=== PATIENT | male | born 1930 | race Caucasian/White ===

== ENCOUNTER 2016-10-30 12:59 | Emergency (ER) | payer OTHER ==
[~2016-10-30] VITALS: Ht 167.6 cm; Wt 68.0 kg
[~2016-10-30 12:59] MED LIST: ASPI81TA28 PO; CHOL1CAP57 PO; FENO134C PO; MAGN400T24 PO; METO50TA16 PO; MULT60CA PO; OMEGCAP2 PO; PLV75 PO; SIMV-151 PO
[2016-10-30 13:01] VITALS: TEMP 36.5; Ht 167.6 cm; Wt 68.0 kg
[2016-10-30] MEDS ORDERED: DIAZEPAM 5MG TAB PO STA (13:19)
[2016-10-30 13:24] VITALS: O2SAT 95
--- NOTE | 2016-10-30 13:40 | EMERGENCY ROOM VISIT NOTE ---
History Report prepared by Marivel: Juarez Reddy Under the Supervision of: Dr. Thomas Holder M.D. First contact with patient: 13:15 Chief Complaint: DIZZY Stated Complaint: DIZZINESS AND WEAKNESS History of Present Illness The patient is an 86 year old male who presents to the Emergency Room with complaints of persistent dizziness that started at 0800 this morning. The patient notes a room-spinning sensation that improves when he sits up. The patient denies history of vertigo. He has not had ringing in his ears recently. He denies any recent fevers or chills. The patient also notes that for the past several months he has been seeing his 's face at night when his eyes are closed and he is trying to sleep. His earlier this year. The patient has a pacemaker. The patient is on a blood thinner. Source of History: patient Onset: 0800 this morning Position: other (global) Quality: other (dizziness) Timing: other (persistent) Modifying Factors (Relieving): other (sitting up) Associated Symptoms: No chills, No fevers Review of Systems All systems have been listed, reviewed, and are negative other than those previously mentioned. Please see Additional Medical History Sheet. Past Medical & Surgical Medical Problems: (1) High cholesterol (2) Hyperlipidemia Nec/Nos (3) Hypertension (4) Lumbosacral Spondylosis (5) Pernicious Anemia (6) Pure Hypercholesterolem Surgical Problems: (1) History of cholecystectomy Family History Cancer Hypertension Kidney disease Kidney stones Social History Smoking Status: Never Smoker Alcohol Use: none Marital Status: Housing Status: lives with family Occupation Status: retired Current/Historical Medications Scheduled Aspirin (Aspirin), 81 MG PO DAILY Cholecalciferol (Vitamin D), 400 UNITS PO DAILY Clopidogrel (Plavix), 75 MG PO DAILY Fenofibrate (Tricor ), 134 MG PO DAILY Magnesium Oxide (Mag-Ox), 400 MG PO DAILY Metoprolol Tartrate (Metoprolol Tartrate), 50 MG PO BID Ocuvite Preservision (Ocuvite Preservision), 1 TAB PO DAILY [place]-3 Fatty Acids (Fish Oil), 1 CAP PO DAILY Simvastatin (Zocor), 20 MG PO DAILY Scheduled PRN Diazepam (Valium), 5 MG PO Q6 PRN for vertigo Meclizine Hcl (Meclizine Hcl), 1 TAB PO Q6 PRN for vertigo Allergies Coded Allergies: No Known Allergies (Unverified , 03/01/14) Physical Exam Vital Signs Date Time Temp Pulse Resp B/P Pulse Ox O2 Delivery O2 Flow Rate FiO2 10/30/16 16:21 60 18 152/94 95 10/30/16 14:33 60 18 165/104 97 Room Air 10/30/16 13:43 60 16 188/111 96 Room Air 60 160/105 10/30/16 13:28 60 10/30/16 13:24 95 Room Air 10/30/16 13:01 36.5 64 20 187/106 99 Room Air Physical Exam GENERAL: Patient awake, alert, oriented x 3. Patient follows commands. Patient does not appear toxic. Patient is adequately hydrated and well- nourished. SKIN: No erythema, pallor, cyanosis or rash HEENT: Normal head, pupils equal, reactive to light and accommodation. Eyes have marked horizontal nystagmus when he is put in a horizontal position. Ears normal. Oral cavity and posterior pharynx appear normal. Neck: Without adenopathy, no neck vein distention. LUNGS: Clear to auscultation. No wheezes, no rales, no rhonchi. HEART: No murmurs. No gallops. No rubs ABDOMEN: No masses, no rebound, no hepatomegaly or splenomegaly. EXTREMITIES: No signs of trauma. No pedal or pretibial edema. No calf or thigh tenderness. NEUROLOGIC: Cranial nerves II-XII within normal limits. No gross motor sensory function deficits. Medical Decision & Procedures ER Provider Diagnostic Interpretation: Radiology results as stated below per my review and radiologist interpretation: SINGLE VIEW CHEST CLINICAL HISTORY: Vertigo. FINDINGS: 2 AP, portable, upright chest radiographs are compared to study dated 03/10/2014. The examination is degraded by portable technique and patient rotation. A 2-lead cardiac pacemaker is unchanged in position and partially obscures the left upper chest. The patient is status post midline sternotomy. The heart is enlarged and there is atherosclerotic calcification of the thoracic aorta. The pulmonary vasculature is noncongested. Emphysematous change and chronic interstitial thickening are similar to previous. There is minimal bibasilar atelectasis. No airspace consolidation, large pleural effusion, or pneumothorax is seen. The skeletal structures are osteopenic. Degenerative change and mild scoliosis are noted in the thoracic spine. IMPRESSION: 1. Cardiomegaly and cardiac pacemaker. There is no radiographic evidence of congestive failure. 2. Suspect emphysema. The lungs are otherwise clear. Electronically signed by: Ashu Funk M.D. 10/30/2016 3:05 PM Dictated Date/Time: 10/30/2016 3:[address] SCAN OF THE BRAIN WITHOUT IV CONTRAST CLINICAL HISTORY: Vertigo. COMPARISON STUDY: No priors. TECHNIQUE: Unenhanced axial CT scan of the brain is performed from the vertex to the skull base. CT DOSE: 537.48 mGy.cm FINDINGS: Brain parenchyma: There are age-related involutional changes noting mild subcortical and periventricular microangiopathic change. There is no hemorrhage, mass effect, or evidence of acute territorial ischemia by CT criteria. [place]-white matter is preserved. No extra-axial fluid collection is seen. Ventricles, sulci, cisterns: Prominent secondary to involutional change. Intracranial vasculature: There is atherosclerotic calcification of the cavernous carotid and vertebral arteries. Calvarium: Unremarkable. Sinuses and mastoids: The visualized paranasal sinuses are clear. The mastoid air cells are well pneumatized. Orbits: The bony orbits are grossly intact. There are bilateral ocular lens implants. IMPRESSION: There is no hemorrhage, mass effect, or evidence of acute territorial ischemia by CT criteria. Electronically signed by: Ashu Funk M.D. 10/30/2016 2:18 PM Dictated Date/Time: 10/30/2016 2:16 PM Laboratory Results 10/30/16 13:50 Red Blood Count 4.63, Mean Corpuscular Volume 85.1, Mean Corpuscular Hemoglobin 29.4, Mean Corpuscular Hemoglobin Concent 34.5, Mean Platelet Volume 9.5, Neutrophils (%) (Auto) 73.3, Lymphocytes (%) (Auto) 17.3, Monocytes (%) (Auto) 7.8, Eosinophils (%) (Auto) 1.1, Basophils (%) (Auto) 0.3, Neutrophils # (Auto) 4.71, Lymphocytes # (Auto) 1.11, Monocytes # (Auto) 0.50, Eosinophils # (Auto) 0.07, Basophils # (Auto) 0.02 10/30/16 13:50 Test 10/30/16 13:50 10/30/16 14:33 White Blood Count 6.42 K/uL (4.8-10.8) Red Blood Count 4.63 M/uL (4.7-6.1) Hemoglobin 13.6 g/dL (14.0-18.0) Hematocrit 39.4 % (42-52) Mean Corpuscular Volume 85.1 fL (80-100) Mean Corpuscular Hemoglobin 29.4 pg (25-34) Mean Corpuscular Hemoglobin Concent 34.5 g/dl (32-36) Platelet Count 228 K/uL (130-400) Mean Platelet Volume 9.5 fL (7.4-10.4) Neutrophils (%) (Auto) 73.3 % Lymphocytes (%) (Auto) 17.3 % Monocytes (%) (Auto) 7.8 % Eosinophils (%) (Auto) 1.1 % Basophils (%) (Auto) 0.3 % Neutrophils # (Auto) 4.71 K/uL (1.4-6.5) Lymphocytes # (Auto) 1.11 K/uL (1.2-3.4) Monocytes # (Auto) 0.50 K/uL (0.11-0.59) Eosinophils # (Auto) 0.07 K/uL (0-0.5) Basophils # (Auto) 0.02 K/uL (0-0.2) RDW Standard Deviation 48.2 fL (36.4-46.3) RDW Coefficient of Variation 15.4 % (11.5-14.5) Immature Granulocyte % (Auto) 0.2 % Immature Granulocyte # (Auto) 0.01 K/uL (0.00-0.02) Prothrombin Time 12.0 SECONDS (9.0-12.0) Prothromb Time International Ratio 1.1 (0.9-1.1) Activated Partial Thromboplast Time 27.2 SECONDS (21.0-31.0) Partial Thromboplastin Ratio 1.0 Anion Gap 8.0 mmol/L (3-11) Est Creatinine Clear Calc Drug Dose 41.3 ml/min Estimated GFR () 64.0 Estimated GFR (Non- 55.2 BUN/Creatinine Ratio 12.8 (10-20) Calcium Level 9.0 mg/dl (8.5-10.1) Total Bilirubin 0.7 mg/dl (0.2-1) Aspartate Amino Transf (AST/SGOT) 26 U/L (15-37) Alanine Aminotransferase (ALT/SGPT) 20 U/L (12-78) Alkaline Phosphatase 35 U/L (45-117) Troponin I < 0.015 ng/ml (0-0.045) Total Protein 7.2 gm/dl (6.4-8.2) Albumin 3.7 gm/dl (3.4-5.0) Globulin 3.5 gm/dl (2.5-4.0) Albumin/Globulin Ratio 1.1 (0.9-2) Urine Color YELLOW Urine Appearance CLOUDY (CLEAR) Urine pH 8.0 (4.5-7.5) Urine Specific Topmost 1.013 (1.000-1.030) Urine Protein NEG (NEG) Urine Glucose (UA) NEG (NEG) Urine Ketones NEG (NEG) Urine Occult Blood NEG (NEG) Urine Nitrite NEG (NEG) Urine Bilirubin NEG (NEG) Urine Urobilinogen NEG (NEG) Urine Leukocyte Esterase NEG (NEG) Urine WBC (Auto) 0 /hpf (0-5) Urine RBC (Auto) 0-4 /hpf (0-4) Urine Hyaline Casts (Auto) 0 /lpf (0-5) Urine Epithelial Cells (Auto) 0-5 /lpf (0-5) Urine Bacteria (Auto) NEG (NEG) Laboratory results as stated above per my review. Medications Administered Medications (Trade) Dose Ordered Sig/Mer[place] Route Start Time Stop Time Status Last Admin Dose Admin Diazepam (Valium Tab) 5 mg NOW STAT PO 10/30/16 13:19 10/30/16 13:32 DC 10/30/16 13:39 5 MG Meclizine HCl (Antivert Tab) 25 mg NOW STAT PO 10/30/16 15:00 10/30/16 15:05 DC 10/30/16 15:10 25 MG ECG Indication: other (dizziness) Rate (beats per minute): 60 Rhythm: other (atrial paced rhythm) Findings: no acute ischemic change, paced rhythm, no ectopy ED Course 1317: Past medical records reviewed. The patient was evaluated in room A11b. A complete history and physical examination was performed. 1319: Valium 5 mg PO. 1500: Antivert 25 mg PO. 1548: Reassessed the patient. He is feeling better. Discussed everything with him. He will be discharged. Medical Decision I considered multiple diagnoses including vestibular neuronitis, benign positional vertigo, CVA, TIA, meniere's disease. Multiple labs, EKG and imaging were evaluated. Please see above. CT does not reveal a bleed or other significant neurologic pathology. The patient most likely has benign positional vertigo. [place] test was positive. I was unable to perform an [place] procedure on him due to the severe vertigo. The patient did improve with Valium and meclizine. The patient is to continue these medications at home. He is to follow-up with his family physician this week. The patient's visions of his appear to be related to a grief reaction. Impression Primary Impression: Benign positional vertigo Additional Impression: Grief reaction Scribe Attestation The scribe's documentation has been prepared under my direction and personally reviewed by me in its entirety. I confirm that the note above accurately reflects all work, treatment, procedures, and medical decision making performed by me. Departure Information Dispostion Home / Self-Care Prescriptions Meclizine Hcl (MECLIZINE HCL) 25 Mg Tab 1 TAB PO Q6 Y for vertigo, #20 TAB Prov: Thomas Holder M.D. 10/30/16 Diazepam (VALIUM) 5 Mg Tab 5 MG PO Q6 Y for vertigo, #20 TAB Prov: Thomas Holder M.D. 10/30/16 Referrals Marley Vigil M.D. (PCP) Forms HOME CARE DOCUMENTATION FORM, IMPORTANT VISIT INFORMATION Patient Instructions ED BPV Vertigo, My [facility] Additional Instructions 5 mg of Valium every 6 hours as needed for vertigo. Add 25 mg of meclizine every 6 hours as needed if you still have vertigo. Continue all of your current medications as prescribed. Follow-up the family physician this week. Return here sooner if your vertigo is getting worse. Problem Qualifiers
[2016-10-30] MEDS ORDERED: MAGN400T6 PO (13:52)
[2016-10-30] MEDS ORDERED: SIMV20TA2 PO (13:52)
[2016-10-30] MEDS ORDERED: LPR50X PO (13:52)
[2016-10-30] MEDS ORDERED: FENO134C2 PO (13:52)
[2016-10-30] MEDS ORDERED: OMEGCAP2 PO (13:52)
[2016-10-30] MEDS ORDERED: CHOL400T PO (13:52)
[2016-10-30] MEDS ORDERED: ASPI1TAB83 PO (13:52)
[2016-10-30] MEDS ORDERED: MULT-190 PO (13:52)
[2016-10-30] MEDS ORDERED: CLOP1TAB15 PO (13:52)
[2016-10-30 14:06] LABS: BASO % 0.3 %; BASO ABS # 0.02 K/uL (0-0.2); COMPLETE YES; EOS % 1.1 %; HEMATOCRIT 39.4 % (42-52); IG% 0.2 %; LYMPH % 17.3 %; LYMPH ABS # 1.11 K/uL (1.2-3.4); MEAN CELL VOLUME 85.1 fL (80-100); MEAN CORPUSCULAR HEMOGLOBIN 29.4 pg (25-34); MEAN CORPUSCULAR HGB CONC 34.5 g/dl (32-36); MEAN PLATELET VOLUME 9.5 fL (7.4-10.4); MONO % 7.8 %; NEUT % 73.3 %; PLATELET COUNT 228 K/uL (130-400); RED BLOOD COUNT 4.63 M/uL (4.7-6.1); WHITE BLOOD COUNT 6.42 K/uL (4.8-10.8)
[2016-10-30 14:18] LABS: INR 1.1 (0.9-1.1)
[2016-10-30 14:19] LABS: ALT/SGPT 20 U/L (12-78); BLOOD UREA NITROGEN 15 mg/dl (7-18); BUN/CREATININE RATIO 12.8 (10-20); CARBON DIOXIDE 27 mmol/L (21-32); CHLORIDE 106 mmol/L (98-107); GLUCOSE 84 mg/dl (70-99); POTASSIUM 3.9 mmol/L (3.5-5.1); SODIUM 141 mmol/L (136-145)
--- NOTE | 2016-10-30 14:19 | DIAGNOSTIC IMAGING REPORT ---
CT SCAN OF THE BRAIN WITHOUT IV CONTRAST CLINICAL HISTORY: Vertigo. COMPARISON STUDY: No priors. TECHNIQUE: Unenhanced axial CT scan of the brain is performed from the vertex to the skull base. CT DOSE: 537.48 mGy.cm FINDINGS: Brain parenchyma: There are age-related involutional changes noting mild subcortical and periventricular microangiopathic change. There is no hemorrhage, mass effect, or evidence of acute territorial ischemia by CT criteria. [place]-white matter is preserved. No extra-axial fluid collection is seen. Ventricles, sulci, cisterns: Prominent secondary to involutional change. Intracranial vasculature: There is atherosclerotic calcification of the cavernous carotid and vertebral arteries. Calvarium: Unremarkable. Sinuses and mastoids: The visualized paranasal sinuses are clear. The mastoid air cells are well pneumatized. Orbits: The bony orbits are grossly intact. There are bilateral ocular lens implants. IMPRESSION: There is no hemorrhage, mass effect, or evidence of acute territorial ischemia by CT criteria. Electronically signed by: Ashu Funk M.D. 10/30/2016 2:18 PM Dictated Date/Time: 10/30/2016 2:16 PM
[2016-10-30 14:23] LABS: ALB/GLOB RATIO 1.1 (0.9-2); ALKALINE PHOSPHATASE 35 U/L (45-117); AST/SGOT 26 U/L (15-37)
[2016-10-30 14:44] LABS: URINE APPEARANCE CLOUDY (CLEAR); URINE BILIRUBIN NEG (NEG); URINE COLOR YELLOW; URINE EPITHELIAL CELL AUTO 0-5 /lpf (0-5); URINE NITRITE NEG (NEG); URINE SPECIFIC GRAVITY 1.013 (1.000-1.030); UROBILINOGEN NEG (NEG); ZZUR CULT IF INDIC CLEAN CATCH NO
[2016-10-30 14:47] LABS: MANUAL MICROSCOPIC REQUIRED? NO; REVIEW REQ? NO
[2016-10-30] MEDS ORDERED: MECLIZINE HCL 25 MG TAB PO STA (15:00)
--- NOTE | 2016-10-30 15:06 | DIAGNOSTIC IMAGING REPORT ---
SINGLE VIEW CHEST CLINICAL HISTORY: Vertigo. FINDINGS: 2 AP, portable, upright chest radiographs are compared to study dated 03/10/2014. The examination is degraded by portable technique and patient rotation. A 2-lead cardiac pacemaker is unchanged in position and partially obscures the left upper chest. The patient is status post midline sternotomy. The heart is enlarged and there is atherosclerotic calcification of the thoracic aorta. The pulmonary vasculature is noncongested. Emphysematous change and chronic interstitial thickening are similar to previous. There is minimal bibasilar atelectasis. No airspace consolidation, large pleural effusion, or pneumothorax is seen. The skeletal structures are osteopenic. Degenerative change and mild scoliosis are noted in the thoracic spine. IMPRESSION: 1. Cardiomegaly and cardiac pacemaker. There is no radiographic evidence of congestive failure. 2. Suspect emphysema. The lungs are otherwise clear. Electronically signed by: Ashu Funk M.D. 10/30/2016 3:05 PM Dictated Date/Time: 10/30/2016 3:03 PM
[2016-10-30] MEDS ORDERED: MECL1TAB42 PO (16:03)
[2016-10-30] MEDS ORDERED: DIAZ5TAB3 PO (16:03)
[2016-10-30 16:21] VITALS: BP 152/94; PULSE 60; O2SAT 95
[2016-12-14] MEDS ORDERED: WARF2TAB PO (13:23)
== END 2016-10-30 16:23 | disposition home or self-care (01) ==
LOC: C.EDB 13:00 → C.EDA 16:23
DX: H81.10 Benign paroxysmal vertigo, unspecified ear (principal); F43.20 Adjustment disorder, unspecified; I10 Essential (primary) hypertension; E78.5 Hyperlipidemia, unspecified; E78.00 Pure hypercholesterolemia, unspecified; Z90.49 Acquired absence of other specified parts of digestive tract; Z79.82 Long term (current) use of aspirin; Z80.9 Family history of malignant neoplasm, unspecified; Z82.49 Family history of ischemic heart disease and other diseases of the circulatory system; Z84.1 Family history of disorders of kidney and ureter